=== PATIENT | female | born 1990 | race Caucasian/White ===

== ENCOUNTER 2019-11-20 22:11 | Emergency (ER) | payer OTHER ==
[~2019-11-20] VITALS: Ht 157.5 cm; Wt 90.7 kg
[2019-11-20] MEDS ORDERED: MORPHINE SULFATE INJ 4 MG/ML INJ 1ML IV STA ×2 (22:33)
[2019-11-20] MEDS ORDERED: SODIUM CHLORIDE 0.9% 1000ML 1,000 ML IV STA (22:33)
--- NOTE | 2019-11-20 22:36 | Emergency Department Note ---
History of Present Illnes History of Present Illness Chief Complaint: Chest Pain History of Present Illness This is a 29 year old female with sudden onset of left sided CP non-radiating w hich started non-provoked one hour prior to arrival. (+) SOB. Denies n/v . Arrival Mode: Car Onset (how long ago): hour(s) Location: left side of chest Quality: sharp Radiation: non-radiation Severity: moderate Onset quality: sudden Duration (how long): hour(s) (1) Timing of current episode: constant Progression: unchanged Chronicity: new Relieving factors: none Exacerbating factors: none Associated symptoms: denies other symptoms Treatments prior to arrival: none Past Medical/Family History Physician Review I have reviewed the patient's past medical and family history. Any updates have been documented here. Past Medical History Recent Fever: No Clinical Suspicion of Infectio: No New/Unexplained Change in Ment: No Social History Smoking Cessation: Never Smoker Alcohol Use: None Review of Systems Review of Systems Constitutional: no symptoms EENTM: no symptoms Cardiovascular: chest pain Respiratory: dyspnea Gastrointestinal: no symptoms Genitourinary: no symptoms Musculoskeletal: no symptoms Neurological: no symptoms Psychological: no symptoms Endocrine: no symptoms Hematological/Lymphatic: no symptoms Review of other systems All other systems reviewed and negative. Physical Exam Related Data Allergies: Coded Allergies: No Known Allergies (Unverified , 11/20/19) Triage Vital Signs Vital Signs Date Time Temp Pulse Resp B/P (MAP) Pulse Ox O2 Delivery O2 Flow Rate FiO2 11/20/19 22:25 99.4 94 17 135/82 99 Vital signs reviewed: Yes Physical Exam CONSTITUTIONAL Constitutional: well-developed, well-nourished, other (pain) HENT HENT: normocephalic, atraumatic, oropharynx clear/moist, nose normal HENT L/R: left ext ear normal, right ext ear normal EYES Eyes: PERRL, conjunctivae normal NECK Neck: ROM normal PULMONARY Pulmonary: effort normal, breath sounds normal CARDIOVASCULAR Cardiovascular: regular rhythm, heart sounds normal, capillary refill normal, normal rate GASTROINTESTINAL Abdominal: soft, nontender, bowel sounds normal GENITOURINARY Genitourinary: exam deferred SKIN Skin: warm, dry MUSCULOSKELETAL Musculoskeletal: ROM normal NEUROLOGICAL Neurological: alert, oriented x 3, no gross motor or sensory deficits PSYCHOLOGICAL Psychological: mood/affect normal, judgement normal, other (anxious) Results Laboratory Lab results reviewed: Yes Imaging Imaging results reviewed: Yes Impressions [facility] [address] [address] Patient Name: JOEY WHITLOCK MR #: [id number] : 1990 Age/Sex: 29/F Req #: [id number] Adm Physician: Ordered by: STIVEN GOULD DO Report #: [id number] Location: ER Room/Bed: Procedure: [id number] CT/CT CHEST W Exam Date: 11/20/19 Exam Time: 2358 REPORT STATUS: Signed EXAM: CT Chest WITH contrast (PE Protocol) INDICATION: ^PE PROTOCOL ^Y COMPARISON: None TECHNIQUE: Chest was scanned utilizing a multidetector helical scanner from the lung apex through the level of the diaphragm after administration of IV contrast. Thin section reconstructions were obtained with special concentration on the pulmonary arteries. Coronal and sagittal reformations were obtained. Dose modulation, iterative reconstruction, and/or weight based adjustment of the mA/kV was utilized to reduce the radiation dose to as low as reasonably achievable. Pulmonary embolism protocol was performed. IV CONTRAST: 100 mL of Omnipaque 370 COMPLICATIONS: None RADIATION DOSE: Total DLP: 549.41 mGy*cm Estimated effective dose: (DLP x 0.014 x size factor) mSv CTDIvol has been reviewed. It is below the limits set by the Radiation Protocol Committee (RPC). FINDINGS: LINES/ TUBES: None. LUNGS AND AIRWAYS: No filling defect is identified within the pulmonary arteries to the segmental level. The lungs are unremarkable. No focal consolidation. 5 mm right lower lobe nodule (series 3, image 55). Airways are normal. PLEURA: The pleural spaces are clear. HEART AND MEDIASTINUM: The thyroid gland is normal. No mediastinal, hilar or axillary lymphadenopathy. Thymic tissue in the anterior mediastinum. The heart is normal in size.. There is no pericardial effusion. Main pulmonary artery measures 2.5 cm in diameter and the ascending aorta measures 3.1 cm. UPPER ABDOMEN: Unremarkable. Cholecystectomy. BONES: The visualized bony thorax is within normal limits. SOFT TISSUES: Unremarkable. IMPRESSION: No pulmonary emboli. 5 mm right lower lobe lung nodule. Without risk factors, no follow-up is necessary. With risk factors, follow-up with low-dose chest CT in one year is optional. Signed by: Dr. Jay Brar MD on 11/21/2019 1:14 AM Dictated By: JAY BRAR MD 3 Transcribed By: MAR on 11/21/19113 COPY TO: STIVEN GOULD DO~ Procedures 12 Lead ECG Interpretation Grounds Cleaner: Interpreted by ED physician Date: Nov 20, 2019 Time: 22:35 Prior SWIMMING [employer]OL INST[employer]ER tracings: reviewed Rhythm: sinus rhythm Rate: normal BPM: 83 QRS axis: right ST segments normal: Yes T waves normal: Yes Clinical Impression: normal ECG Assessment & Plan Assessment & Plan Final Impression: (1) Atypical chest pain Assessment & Plan CBC, Cardiac enzymes, and CT chest angio. Neg results . Pulmonary Embolus, ACS, CO, pericarditis, PTX considered Depart Disposition: HOME, SELF-CARE STIVEN GOULD DO Nov 20, 2019 22:36
[2019-11-20] MEDS ORDERED: ASPIRIN 81 MG CHEW TAB PO ONE (22:45)
[2019-11-20 23:10] LABS: BASOPHILS # (AUTO) 0.1 (0.0-0.1); EOSINOPHILS # (AUTO) 0.2 (0.0-0.4); EOSINOPHILS % 2.3 % (0.0-6.0); HEMATOCRIT 44.9 % (34.2-44.1); LYMPHOCYTES # (AUTO) 2.8 (1.0-3.2); LYMPHOCYTES % 36.4 % (18.0-39.1); MEAN CORPUSCULAR HEMOGLOBIN 28.8 pg (28-32); MEAN CORPUSCULAR HGB CONC 33.4 g/dL (31-35); MEAN CORPUSCULAR VOLUME 86.2 fL (81-99); MONOCYTES # (AUTO) 0.6 (0.2-0.8); MONOCYTES % 7.2 % (4.4-11.3); NEUTROPHILS # (AUTO) 4.1 (2.1-6.9); NEUTROPHILS % 52.8 % (38.7-80.0); PLATELET COUNT 212 x10e3/uL (140-360); RED BLOOD COUNT 5.21 x10e6/uL (3.6-5.1); RED CELL DISTRIBUTION WIDTH 12.2 % (11.7-14.4)
[2019-11-20] MEDS ORDERED: ONDANSETRON HCL INJ 2MG/ML 2ML 2 MG/ML VIAL IV STA (23:23)
[2019-11-20 23:24] LABS: ALANINE AMINOTRANSFERASE 39 IU/L (0-55); ALBUMIN 3.8 g/dL (3.5-5.0); ALKALINE PHOSPHATASE 77 IU/L (40-150); ANION GAP 15.8 mmol/L (8-16); BLOOD UREA NITROGEN 19 mg/dL (7-26); BUN/CREATININE RATIO 19 (6-25); CARBON DIOXIDE 23 mmol/L (22-29); CHLORIDE 105 mmol/L (98-107); CREATINE KINASE 97 IU/L (29-168); EST GLOMERULAR FILTRATION RATE > 60 ML/MIN (60-); GLUCOSE 119 mg/dL (74-118); POTASSIUM 3.8 mmol/L (3.5-5.1); SODIUM 140 mmol/L (136-145)
[2019-11-20] MEDS ORDERED: ONDANSETRON HCL INJ 2MG/ML 2ML 2 MG/ML VIAL ONE (23:32)
[2019-11-21] MEDS ORDERED: SODIUM CHLORIDE 0.9% 50ML 50 ML ONE (00:15)
[2019-11-21] MEDS ORDERED: IOPAMIDOL 370 MG/ML 200 ML INFUS..BTL INJ ONE (00:15)
--- NOTE | 2019-11-21 01:17 | Diagnostic Imaging Report ---
EXAM: CT Chest WITH contrast (PE Protocol) INDICATION: ^PE PROTOCOL ^Y COMPARISON: None TECHNIQUE: Chest was scanned utilizing a multidetector helical scanner from the lung apex through the level of the diaphragm after administration of IV contrast. Thin section reconstructions were obtained with special concentration on the pulmonary arteries. Coronal and sagittal reformations were obtained. Dose modulation, iterative reconstruction, and/or weight based adjustment of the mA/kV was utilized to reduce the radiation dose to as low as reasonably achievable. Pulmonary embolism protocol was performed. IV CONTRAST: 100 mL of Omnipaque 370 COMPLICATIONS: None RADIATION DOSE: Total DLP: 549.41 mGy*cm Estimated effective dose: (DLP x 0.014 x size factor) mSv CTDIvol has been reviewed. It is below the limits set by the Radiation Protocol Committee (RPC). FINDINGS: LINES/ TUBES: None. LUNGS AND AIRWAYS: No filling defect is identified within the pulmonary arteries to the segmental level. The lungs are unremarkable. No focal consolidation. 5 mm right lower lobe nodule (series 3, image 55). Airways are normal. PLEURA: The pleural spaces are clear. HEART AND MEDIASTINUM: The thyroid gland is normal. No mediastinal, hilar or axillary lymphadenopathy. Thymic tissue in the anterior mediastinum. The heart is normal in size.. There is no pericardial effusion. Main pulmonary artery measures 2.5 cm in diameter and the ascending aorta measures 3.1 cm. UPPER ABDOMEN: Unremarkable. Cholecystectomy. BONES: The visualized bony thorax is within normal limits. SOFT TISSUES: Unremarkable. IMPRESSION: No pulmonary emboli. 5 mm right lower lobe lung nodule. Without risk factors, no follow-up is necessary. With risk factors, follow-up with low-dose chest CT in one year is optional. Signed by: Dr. Jay Brar MD on 11/21/2019 1:14 AM
[2019-11-21] MEDS ORDERED: KETOROLAC TROMETHAMINE 30 MG/ML VIAL IV STA ×2 (02:04→02:11)
[2019-11-21] MEDS ORDERED: KETOROLAC TROMETHAMINE 30 MG/ML VIAL IM STA (02:55)
[2019-11-21 02:56] VITALS: BP 121/69
[2019-11-21] MEDS ORDERED: ONDANSETRON HCL 4 MG ORAL DISINTEGRATING TAB ONE (04:18)
== END 2019-11-21 02:57 | disposition home or self-care (01) ==
LOC: ER 22:11
DX: R06.00 Dyspnea, unspecified (principal); R07.89 Other chest pain; R91.8 Other nonspecific abnormal finding of lung field
CPT/HCPCS: 36415; 71260; 80053; 81025; 82550; 82553; 84484; 85025; 93005; 99284; J1885; J2270; J2405; J7030; Q0162; Q9967

== ENCOUNTER → 2020-06-03 | Outpatient (CLI) | payer OTHER | LOC: CT 11:30 | PROVIDERS: ATTEND Family Medicine | DX: Z09 Encounter for follow-up examination after completed treatment for conditions other than malignant neoplasm (principal); R91.1 Solitary pulmonary nodule | CPT/HCPCS: 71250 ==